=== PATIENT | male | born 1950 | race Two or more races ===

== ENCOUNTER 2019-01-22 14:35 | Inpatient (IN) | payer MEDICARE, BC ==
[~2019-01-22] VITALS: Ht 167.6 cm; Wt 74.8 kg
[~2019-01-22 14:35] MED LIST: NKM
[2019-01-22 14:40] VITALS: BP 118/49
--- NOTE | 2019-01-22 14:40 | NUR ---
ED Nurse Note: pt was brought in by ambulance from pt chiropractic clinic c/o vertigo, early today pt feels dizzy but keeps on doing his pt and this afternoon symptoms got worsen and pt has nausea and vomiting and unable to focus his eyes, pt stated that he have had a vertigo before but not as worse as this. seen by tamia, will continue to monitor.
[2019-01-22] MEDS ORDERED: DiphenhydrAMINE 50mg/ml Inj IVP ONE (15:00)
[2019-01-22] MEDS ORDERED: Gadavist 7.5mMol/7.5ml vial IV PRN ×2 (15:00→20:15)
[2019-01-22] MEDS ORDERED: Metoclopramide 10mg/2ml Inj IVP ONE (15:00)
--- NOTE | 2019-01-22 15:20 | Emergency Room Report ---
History of Present Illness General Chief Complaint: Dizziness Source: Patient, EMS Present Illness HPI Presents with severe vertigo. This began approximately 10 AM this morning. He has had vertigo in the past but never this severe. He is vomiting uncontrollably. There has been no blood or coffee grounds. He denies any fevers or chills. There is no headache. The patient denies any medical problems. 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 He denies hypertension. He's had no problems with the circulation of his neck. He believes he had a CT scan after an accident of his neck and possibly has had several years ago that was normal. He has not undergone any adjustments recently. He later reports ocular migraines. No chest pain, shortness of breath, change in bowel habits, rashes, joint pain. 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 Reviewed Nursing Documentation: PMH: Agreed; PSxH: Agreed Nursing Documentation-PMH Past Medical History: No History, Except For Hx Cardiac Problems: Yes - heart murmur Hx Neurological Problems: Yes - Vertigo Review of Systems All Other Systems: negative except mentioned in HPI Physical Exam Vital Signs Date Time Temp Pulse Resp B/P (MAP) Pulse Ox O2 Delivery O2 Flow Rate FiO2 01/22/19 14:31 96.4 63 16 107/54 (71) 99 Room Air Sp02 EP Interpretation: reviewed, normal General Appearance: GCS 15, non-toxic, mild distress - Appears ill, other - Eyes closed Head: normocephalic Eyes: bilateral eye normal inspection, bilateral eye PERRL, bilateral eye abnormal EOM - Nystagmus ENT: normal pharynx, dry mucus membranes Neck: full range of motion, supple, no bony tend, no carotid bruits, supple/ symm/no masses Respiratory: chest non-tender, lungs clear, normal breath sounds Cardiovascular #1: regular rate, rhythm Cardiovascular #2: 2+ radial (R) Gastrointestinal: normal inspection, normal bowel sounds, non tender, no mass, non-distended Musculoskeletal: back normal, normal range of motion Neurologic: alert, oriented x3, motor strength/tone normal, DTRs symmetric, sensory intact, speech normal, nystagmus Psychiatric: depressed affect - And appears ill Skin: warm/dry, other - [facility] Medical Decision Making Diagnostic Impression: Primary Impression: Vertigo, central Qualified Codes: H81.49 - Vertigo of central origin, unspecified ear Additional Impressions: Leukocytosis Qualified Codes: D72.828 - Other elevated white blood cell count Elevated TSH ER Course Patient with severe vertigo that is debilitating at this time differential includes labyrinthitis, Mnire's disease, cerebellar stroke, posterior circulation dissection amongst others. Due to the patient's appearance he is quite debilitated by the symptoms and work-up needs to be definitive. He will have EKG, chest x-ray MRI of the brain and MRA of the neck with contrast. Labs will be obtained. He will receive Reglan and Benadryl initially with considerations of other antiemetics if needs to be. Patient outside of window for TPA. EKG with suzy and incomplete RBB. Chest x-ray unremarkable. Labs with leukocytosis, elevated glucose, normal sedimentation rate, normal coagulation studies, negative troponin, elevated TSH. HR better withe less nausea. Will give Zofran prior to MRI. Discussed clinical concerns with . 15:30 (Consideration of transfer if stroke or dissection.) Improved and tolerating oral intake. Based on MRI/MRA started on aspirin and Plavix. Evaluated by Neurologist in ED. Initially was going to sign out, the reconsidered. Not orthostatic. Patient improved and needing observation and neurologic intervention. Admitted to observation telemetry Dr. Blevins. Laboratory Tests Test 01/22/19 15:13 01/22/19 20:30 White Blood Count 15.7 K/UL (4.8-10.8) H Red Blood Count 4.65 M/UL (4.70-6.10) L Hemoglobin 14.5 G/DL (14.2-18.0) Hematocrit 41.1 % (42.0-52.0) L Mean Corpuscular Volume 88 FL (80-99) Mean Corpuscular Hemoglobin 31.3 PG (27.0-31.0) H Mean Corpuscular Hemoglobin Concent 35.4 G/DL (32.0-36.0) Red Cell Distribution Width 10.6 % (11.6-14.8) L Platelet Count 230 K/UL (150-450) Mean Platelet Volume 6.2 FL (6.5-10.1) L Neutrophils (%) (Auto) % (45.0-75.0) Lymphocytes (%) (Auto) % (20.0-45.0) Monocytes (%) (Auto) % (1.0-10.0) Eosinophils (%) (Auto) % (0.0-3.0) Basophils (%) (Auto) % (0.0-2.0) Differential Total Cells Counted 100 Neutrophils % (Manual) 83 % (45-75) H Lymphocytes % (Manual) 6 % (20-45) L Monocytes % (Manual) 1 % (1-10) Eosinophils % (Manual) 0 % (0-3) Basophils % (Manual) 0 % (0-2) Band Neutrophils 10 % (0-8) H Platelet Estimate Adequate Platelet Morphology Normal Red Blood Cell Morphology Normal Erythrocyte Sedimentation Rate 5 MM/HR (0-20) Prothrombin Time 12.0 SEC (9.30-11.50) H Prothrombin Time INR 1.1 (0.9-1.1) PTT 24 SEC (23-33) Fibrinogen Pending Sodium Level 140 MMOL/L (136-145) Potassium Level 4.2 MMOL/L (3.5-5.1) Chloride Level 104 MMOL/L (98-107) Carbon Dioxide Level 26 MMOL/L (21-32) Anion Gap 11 mmol/L (5-15) Blood Urea Nitrogen 9 mg/dL (7-18) Creatinine 0.8 MG/DL (0.55-1.30) Estimate Glomerular Filtration Rate > 60 mL/min (>60) Glucose Level 192 MG/DL (74-106) H Hemoglobin A1c 5.4 % (4.3-6.0) Calcium Level 9.5 MG/DL (8.5-10.1) Total Bilirubin 0.7 MG/DL (0.2-1.0) Aspartate Amino Transferase (AST) 22 U/L (15-37) Alanine Aminotransferase (ALT) 26 U/L (12-78) Alkaline Phosphatase 48 U/L (46-116) Total Creatine Kinase 85 U/L (26-308) Troponin I 0.011 ng/mL (0.000-0.056) Pro-B-Type Natriuretic Peptide 111 pg/mL (0-125) Total Protein 7.0 G/DL (6.4-8.2) Albumin 3.9 G/DL (3.4-5.0) Globulin 3.1 g/dL Albumin/Globulin Ratio 1.3 (1.0-2.7) Thyroid Stimulating Hormone (TSH) 4.980 uiU/mL (0.358-3.740) Coagulation Factor II Pending Coagulation Factor V Pending Factor V Mutation Pending Coagulation Factor VII Pending Coagulation Factor X Pending EKG Diagnostic Results Rate: bradycardiac Rhythm: NSR ST Segments: no acute changes - RBBB HR 51 Rhythm Strip Diag. 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
--- NOTE | 2019-01-22 15:24 | NUR ---
ED Nurse Note: nanotechnology engineering technologist on bedside
[2019-01-22 15:28] VITALS: BP 115/72
--- NOTE | 2019-01-22 15:34 | Diagnostic Imaging Report ---
Indication: Chest pain Technique: One view of the chest Comparison: none Findings: Lungs and pleural spaces are clear. Heart size is normal Impression: No acute process
[2019-01-22 15:35] LABS: HEMATOCRIT 41.1 % (42.0-52.0); HEMOGLOBIN 14.5 G/DL (14.2-18.0); MEAN CORPUSCULAR VOLUME 88 FL (80-99); PLATELET COUNT 230 K/UL (150-450); RED BLOOD COUNT 4.65 M/UL (4.70-6.10); RED CELL DISTRIBUTION WIDTH 10.6 % (11.6-14.8); WHITE BLOOD COUNT 15.7 K/UL (4.8-10.8)
[2019-01-22 15:44] LABS: ANION GAP 11 mmol/L (5-15); BLOOD UREA NITROGEN 9 mg/dL (7-18); CALCIUM 9.5 MG/DL (8.5-10.1); CARBON DIOXIDE 26 MMOL/L (21-32); CHLORIDE 104 MMOL/L (98-107); CREATININE 0.8 MG/DL (0.55-1.30); POTASSIUM 4.2 MMOL/L (3.5-5.1); SODIUM 140 MMOL/L (136-145)
--- NOTE | 2019-01-22 15:45 | NUR ---
ED Nurse Note: pt went to mri with tech
[2019-01-22 15:59] LABS: ALANINE AMINOTRANSFERASE 26 U/L (12-78); ALBUMIN 3.9 G/DL (3.4-5.0); ALBUMIN/GLOBULIN RATIO 1.3 (1.0-2.7); ALKALINE PHOSPHATASE 48 U/L (46-116); ASPARTATE AMINO TRANSFERASE 22 U/L (15-37); BILIRUBIN,TOTAL 0.7 MG/DL (0.2-1.0); CREATINE KINASE 85 U/L (26-308)
[2019-01-22 16:33] LABS: INR 1.1 (0.9-1.1)
--- NOTE | 2019-01-22 17:35 | NUR ---
ED Nurse Note: pt went back from mri with tech
--- NOTE | 2019-01-22 18:00 | NUR ---
ED Nurse Note: pt reassessed and pt stated that he feels better now but still feels dizzy when he moves his head. pt vs within normal limit. will continue to monitor
[2019-01-22 18:02] VITALS: BP 110/50
[2019-01-22 19:11] VITALS: BP 132/59
--- NOTE | 2019-01-22 19:11 | NUR ---
ED Nurse Note: urologist at bedside
[2019-01-22 19:39] VITALS: BP_SYST 115; BP_SYST 125; BP_DIAS 51; BP_DIAS 56; BP_DIAS 60
--- NOTE | 2019-01-22 20:07 | NUR ---
ED Nurse Note: Jojo Cook ()- [phone]
--- NOTE | 2019-01-22 20:29 | NUR ---
ED Nurse Note: US AT BEDSIDE
[2019-01-22 20:31] VITALS: BP 110/62
--- NOTE | 2019-01-22 20:31 | NUR ---
ED Nurse Note: Orders noted for vascular studies and echo - automobile body repair supervisor informed. Numbers for echo techs patient coordinator front desk provided; messages left for Dary Sebastian [phone], and Tara Washburn [phone].
--- NOTE | 2019-01-22 21:12 | NUR ---
ED Nurse Note: Dary Sebastian returned call - confirmed order is for today.
--- NOTE | 2019-01-22 22:45 | NUR ---
TRANSFER TO FLOOR: Patient transferred to as ordered, per Dr Blevins. Report given to CHRIS Le[. Family and or S/O informed of transfer.
--- NOTE | 2019-01-22 23:00 | NUR ---
NURSE NOTES: Received report from Candido Madsen RN regarding patients transfer to TELE floor from ED. Head to toe assessment initiated with no skin breakdown noted. Belongings checked and noted at bedside. Continuous Cardiac monitoring in place per protocol and safety precaution in place at all times; siderails X3up, call light within reach, bed in lowest position, brakes and alarm on at all times. No complaints of acute pain or distress noted at this time. Needs and wants anticipated and attended. Will continue to monitor.
--- NOTE | 2019-01-22 23:30 | NUR ---
NURSE NOTES: Called and left message to Mark Blevins MD. regarding patients arrival on the floor. Awaiting call-back for admit orders. Will F/U again in 30 mins if there is no call-back received per MD.
[2019-01-23] VITALS: BP 109/68
--- NOTE | 2019-01-23 | NUR ---
NURSE NOTES: Called and left message for the second time for Mark Blevins MD. regarding admit orders. Still awaiting call-back. Will continue to monitor. Patient resting in bed with no complaints of acute pain at this time.
[2019-01-23 04:00] VITALS: BP 108/56
--- NOTE | 2019-01-23 04:30 | NUR ---
NURSE NOTES: Patient in bed asleep with no S/S of distress noted. Will continue to monitor. Called and left message for Mark Blevins MD. for admit orders. Awaiting call back
[2019-01-23] MEDS ORDERED: Meclizine 25mg tab ORAL PRN (04:45)
--- NOTE | 2019-01-23 04:50 | NUR ---
NURSE NOTES: Received call-back from Mark Blevins MD. New orders carried out. Will continue raymond monitor.
--- NOTE | 2019-01-23 07:24 | NUR ---
HAND-OFF: Report given to Graeme Baer RN. Patient in bed with no S/S of distress noted. Endorsed plan of care.
[2019-01-23 07:47] VITALS: BP 105/53
--- NOTE | 2019-01-23 07:55 | NUR ---
NURSE NOTES: Received report from Rey PEREZ. patient is a/o x 4. side rails up X2 up, call light within reach, bed in lowest position, brakes and alarm on at all times. No complaints of acute pain, SOB and distress noted at this time. Will continue to monitor.
[2019-01-23] MEDS ORDERED: Heparin 5000 units/ml inj SUBQ SCH (09:00)
--- NOTE | 2019-01-23 09:30 | NUR ---
PT EVALUATION NOTE Patient seen for evaluation. Patient independent with all functional mobility without an assistive device, denied dizziness during mobility. No gait deviations noted during ambulation. Skilled inpatient PT intervention not warranted, patient discharged from PT, Puneet PEREZ notified. Addendum: 01/23/19 at 1053 by BONNIE JEREZ PT Amended: Links added.
--- NOTE | 2019-01-23 09:49 | Diagnostic Imaging Report ---
Indication: Severe vertigo, dizziness, nausea, vomiting Technique: sagittal T1 fast spin echo, axial T1 and T2 FLAIR PROPELLER, axial T2 FS PROPELLER, T2* GRE, axial diffusion weighted images, post contrast axial and coronal T1 FLAIR PROPELLER images. ADC and exponential ADC maps generated Comparison: none Findings: . No abnormal areas of restricted diffusion to suggest acute infarction. No acute hemorrhage or edema. No mass effect nor midline shift. No abnormal contrast enhancement. Is minimal age-related enlargement of the ventricles and extra axial CSF spaces. The vascular flow voids are preserved. Visualized orbits and sinuses are unremarkable. Impression: Minimal age-related volume loss Negative for acute intracranial bleed, mass effect, infarct, or contrast enhancing lesion This agrees with the preliminary interpretation provided overnight by Dr. Camp
--- NOTE | 2019-01-23 09:56 | Diagnostic Imaging Report ---
Indication: Severe vertigo, nausea, vomiting, suspected cerebrovascular dissection Technique: Axial 2-D [id number] images obtained through the neck, and MIP reconstructions were generated. Subsequently, IV administration of gadolinium, coronal TRICKS acquisitions obtained of the cervical circulation. Comparison: none Findings: The aortic arch anatomy is normal. There is classic branching anatomy of the great neck vessels. The left subclavian artery is patent nonstenotic. The left vertebral artery is dominant, patent, nonstenotic, forms a normal caliber basilar artery. The right brachiocephalic and proximal subclavian arteries are patent, without significant stenosis. The right vertebral artery is a diffusely small caliber vessel, particularly distally, and may be atretic beyond the PICA origin. The right common carotid and internal carotid arteries are patent without significant stenosis. The left common carotid artery and internal carotid arteries are both patent, without significant focal stenosis. No evidence of vascular dissection demonstrated. 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 Large caliber dominant left vertebral artery This agrees with the preliminary interpretation provided overnight by Dr. Camp
--- NOTE | 2019-01-23 10:02 | Diagnostic Imaging Report ---
Indications: Reason For Exam: CVA Technique: 3D [id number] images obtained through the [place] [facility] [place]. MIP reconstructions were generated in multiple rotational projections Comparison: None. Reference made to cervical MRA, brain MRI performed simultaneously. Findings: Dominant left vertebral artery. The right vertebral artery appears to be atretic or occluded beyond the PICA origin. Patent nonstenotic basilar artery. The bilateral superior cerebellar arteries are patent. There is origin of the right posterior cerebral artery with absent right P1 segment. Patent left P1. There is also a sizable left posterior communicating artery. Patent nonstenotic P2 segments and proximal branches. Patent nonstenotic distal internal carotid arteries. Patent nonstenotic bilateral A1 segments, A2 segments and proximal branches. There appears to be an anterior to indicating artery present. Patent nonstenotic bilateral M1 segments and proximal branches. No evidence of aneurysm or vascular malformation demonstrated. Impression: No evidence of intracranial cerebrovascular insufficiency Small caliber right vertebral artery, with absence of the segment distal to the PICA origin. Possibly acquired but suspect developmental in nature [place] anatomy as described This agrees with the preliminary interpretation provided overnight by Dr. Camp
--- NOTE | 2019-01-23 11:10 | NUR ---
NURSE NOTES: patient noted that he can not stay in hospital today, he noted that he wants to leave as soon as possible and even can not wait to know his tests result. Patient noted" I know that i am fine, i can not stay here and wait to see when the doctor going to come." patient signed AMA and left the hospital @ [address] Blevins and Charge Nurse notified.
--- NOTE | 2019-01-23 15:34 | NUR ---
CASE MANAGEMENT:REVIEW 68 YR OLD MALE BIBA FROM [facility] CC: DIZZINESS SI: CENTRAL VERTIGO. 96.5 63 16 107/54 99% ON RA WBC+15.7 IS: 500CC NS BOLUS 1L NS BOLUS IV REGLAN IV BENADRYL IV ZOFRAN MRI BRAIN MRA NECK CHEST XRAY : TO TELEMETRY UNIT
--- NOTE | 2019-01-23 16:08 | Consultation ---
History of Present Illness General Date patient seen: Jan 22, 2019 Time patient seen: 19:00 Chief Complaint: Dizziness Referring physician: Dr. Son Reason for Consultation: Dizziness with Vertebral Artery Stenosis on MRA Present Illness Allergies: Coded Allergies: No Known Allergies (Unverified , 01/22/19) Medication History Scheduled No Known Medications* (NKM - No Known Medications*), 0 ., (Reported) Patient History Healthcare decision maker Resuscitation status Full Code Advanced Directive on File No Past Medical/Surgical History Past Medical/Surgical History: (1) Ocular migraine (2) Vertigo Physical Exam Last 24 Hour Vital Signs Date Time Temp Pulse Resp B/P (MAP) Pulse Ox O2 Delivery O2 Flow Rate FiO2 01/23/19 09:00 Room Air 01/23/19 07:47 97.7 57 20 105/53 (70) 98 01/23/19 04:00 97.4 62 18 108/56 (73) 97 01/23/19 04:00 60 01/23/19 00:00 69 01/23/19 00:00 97.6 75 18 109/68 (82) 97 01/22/19 23:55 Room Air 01/22/19 20:31 96.3 81 18 110/62 100 Room Air 01/22/19 19:39 96.4 83 115/51 85 125/56 84 125/60 01/22/19 19:11 96.4 80 19 132/59 100 Room Air 01/22/19 18:02 82 13 110/50 100 Room Air Intake and Output 01/22/19 01/23/19 19:00 07:00 Intake Total 800 ml 420 ml Output Total 0 ml Balance 800 ml 420 ml Intake Oral 120 ml IV Total 800 ml 300 ml Output Urine Total 0 ml # Voids 3 Laboratory Tests Test 01/22/19 20:30 Coagulation Factor II Pending Coagulation Factor V Pending Factor V Mutation Pending Coagulation Factor VII Pending Coagulation Factor X Pending Height (Feet): 5 Height (Inches): 6.00 Weight (Pounds): 165 Carolin Mcclelland N.P. Jan 23, 2019 16:08
--- NOTE | 2019-01-23 23:45 | History and Physical Report ---
DATE OF ADMISSION: 01/22/2019 REASON FOR ADMISSION: Persistent dizziness. HISTORY OF PRESENT ILLNESS: The patient is a 68-year-old female, brought in with significant vertigo. The patient has had prior history of the above, but currently very severe, difficult to manage. The patient is vomiting uncontrollably. No significant hematochezia noted. No other associated symptoms. No head trauma. No hearing loss or vision loss. No focal weakness. The patient now admitted for hydration and antiemetics. The patient is comfortable at present. No other fevers or chills. No other significant symptoms or chest pain. PAST MEDICAL HISTORY: Essentially as above. SOCIAL HISTORY: Nonsmoker and nondrinker. The patient lives with an elderly mother. She is , chiropractor. REVIEW OF SYSTEMS: All 10 points reviewed and otherwise negative with questionable heart murmur and prior history of vertigo noted. PHYSICAL EXAMINATION: GENERAL: A well-developed female, comfortable at present. VITAL SIGNS: Blood pressure 105/53, heart rate 57, respirations 20, temperature 97.7. HEENT: Negative. NECK: Supple. LUNGS: Clear and symmetric. No rhonchi or wheezes. CARDIAC: S1, S2. Regular rate and rhythm. ABDOMEN: Soft, nontender, nondistended. EXTREMITIES: No cyanosis, clubbing, or edema. NEUROLOGIC: Grossly nonfocal. No significant nystagmus noted. LABORATORY DATA: Otherwise reviewed, notable for white count 15.7, otherwise fairly benign. Electrolytes fairly normal. TSH 4.9. A chest x-ray essentially negative. IMPRESSION: Persistent vertigo, leukocytosis of unclear etiology, associated nausea. RECOMMENDATIONS: Supportive care. MRI of the head ordered. Await further improvement and optimization and will discharge to home once clear and stable. Ankush Blevins M.D. DR: ARDEN JOB#: [id number] CC:
--- NOTE | 2019-01-24 08:57 | Discharge Summary ---
Discharge Summary Discharge Summary _ DATE OF ADMISSION: 01/22/2019 DATE OF DISCHARGE: 01/23/2019 DISCHARGED BY: Dr. Macie Blevins ENVIRONMENTAL OFFICER: Dr. Niall Beckwith [facility] HOSPITAL COURSE: Patient is a 68-year-old male, who was brought in due to vertigo. Patient had prior history of vertigo, but currently symptoms were severe and was difficult to manage. The patient had uncontrollable vomiting. There was no significant hematochezia noted. No other associated symptoms. No head trauma. No hearing loss or vision loss. No focal weakness. On evaluation at ED, vital signs were stable. Blood work showed WBC elevated to 15.7. Hemoglobin and hematocrit were stable. Electrolytes were normal. Glucose was elevated to 192. ESR was normal. Troponin was negative. TSH was elevated to 4.9. EKG done showed sinus bradycardia with right bundle branch block. Chest x-ray did not show any acute process. Brain MRI was negative for acute intracranial bleed, mass-effect or infarct. 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 She was given aspirin and Plavix. He was given Zofran. He was then admitted for evaluation of central vertigo, leukocytosis of unclear etiology and associated nausea. He was admitted to telemetry. He was given supportive care. Neurologist was consulted. Carotid duplex scan did not show any significant occlusion. MRA of the head showed small caliber right vertebral artery, with absence of segment distal to the PICA origin. He underwent PT evaluation. Full treatment was not carried out as patient left against medical advise. FINAL DIAGNOSES: Persistent vertigo Leukocytosis of unclear etiology Associated nausea Elevated TSH DISPOSITION: Patient left against medical advise. I have been assigned to complete a discharge summary on this account, I was not involved with the patient's management. Pam Andrade NP Jan 24, 2019 08:57
--- NOTE | 2019-01-25 09:33 | Diagnostic Imaging Report ---
APPROVED REPORT CPT Code: 73912 Vascular Symptoms Comments: CVA. CAROTID (BILATERAL) - Imaging reveals no significant plaque within the right and left extracranial carotid arteries, however the Doppler spectral flow analysis is abnormal (resistive) in the common carotid artery bilaterally. The Doppler spectral flow analysis is within normal limits throughout the extracranial carotid and internal arteries bilaterally. VERTEBRAL- The vertebral arteries are patent without evidence of stenosis or steal.
--- NOTE | 2019-01-26 13:58 | Cardiology Report ---
APPROVED REPORT EKG Measurement Heart [id number] Sinus bradycardia Right bundle branch block Borderline ECG
--- NOTE | 2019-01-27 09:48 | Cardiology Report ---
APPROVED REPORT EXAM: Two-dimensional and M-mode echocardiogram with Doppler and color Doppler. INDICATION Dizziness M-Mode DIMENSIONS IVSd0.9 (0.7-1.1cm)Left Atrium (MM)3.2 (1.6-4.0cm) LVDd5.4 (3.5-5.6cm)Aortic Root2.8 (2.0-3.7cm) PWd0.9 (0.7-1.1cm)Aortic Cusp Exc.2.1 (1.5-2.0cm) IVSs1.6 cm LVDs2.7 (2.5-4.0cm) PWs1.4 cm Normal left ventricular chamber size, systolic function and wall motion . Left ventricular ejection fraction estimated to be 60%. Mild left ventricular hypertrophy by 2-D. No evidence of pericardial effusion . All other cardiac chamber sizes are within normal limits. Aortic valve calcification with normal cusp excursion . Mildly thickened mitral valve leaflets with normal excursion. Mild mitral annulus and aortic root calcification. Pulmonic valve not well visualized. IVC at 2.2 cm without physiologic collapse suggestive of increased RA pressure. A color flow and spectral Doppler study was performed and revealed: No aortic insufficiency . Mitral inflow indicates normal left ventricular diastolic function. Trace mitral regurgitation. Trace tricuspid regurgitation. Tricuspid systolic velocities suggests peak right ventricular systolic pressure of 18 mmHg.
== END 2019-01-23 11:05 | disposition left against medical advice (07) | DRG 149 ==
LOC: EDBD 14:35 → EMR 15:50 → 2E 15:52 → EDBEDREQ 22:08
DX: R42 Dizziness and giddiness (principal); D72.829 Elevated white blood cell count, unspecified; R11.0 Nausea; R94.6 Abnormal results of thyroid function studies; I45.10 Unspecified right bundle-branch block
CPT/HCPCS: 36415; 70544; 70548; 70552; 71045; 80053; 81241; 82550; 83036; 83880; 84443; 84484; 85007; 85025; 85210; 85220; 85230; 85260; 85384; 85610; 85651; 85730; 93005; 93306; 93880; 96374; 96375; 99285; A9585; J2405; J2765